=== PATIENT | male | born 1985 | race Caucasian/White ===

== ENCOUNTER 2020-08-08 23:52 | Emergency (ER) | payer OTHER ==
[~2020-08-08] VITALS: Ht 180.3 cm; Wt 92.5 kg
[2020-08-08 23:57] VITALS: BP 135/91
[2020-08-09] MEDS ORDERED: SODIUM CHLORIDE FLUSH 10ML SYR IVF ONE (00:30)
[2020-08-09] MEDS ORDERED: PROPOFOL 10 MG/ML, 20ML IVPush ONE (00:30)
[2020-08-09] MEDS ORDERED: SODIUM CHLORIDE 0.9% 1,000ML IVBOLUS ONE (00:30)
[2020-08-09] MEDS ORDERED: ONDANSETRON 2MG/ML, 2ML IVPush ONE (00:30)
[2020-08-09] MEDS ORDERED: PROPOFOL 100 ML IV ONE (00:54)
--- NOTE | 2020-08-09 01:15 | NUR ---
PT TRANSFERRED TO ROOM T2 FOR CONSCIOUSS SEDATION TO REMOVE FOREIGN BODY FROM THROAT. PT ON FULL CR MONITOR, AND ON O2 NC AND ETCO2 SAMPLER, AND BVM AT BEDSIDE, SUCTION AVAILABLE, AND CODE CART AVAILABLE AND STANDBY AT BEDSIDE. GI RN TO BEDSIDE WITH ENDOSCOPE MACHINE AND CART AND SET IT UP. GI MD TO BEDSIDE AND IS HERE TO COMPLETE PROCEDURE. MEDS PREPARED, AND READY. MD MADE AWARE.
--- NOTE | 2020-08-09 02:16 | NUR ---
SEE CONSCIOUS SEDATION NOTES FOR SEDATION PROCEDURE. PT TOLERATED WELL, AND WAS RECOVERED AND F/U AND D/C INSTRUCTIONS GIVEN TO PT WITH PRESCRIPTIONS AND HE V/U. PT AMBULATORY, CAOX3, A&OX4 AND AIRWAY INTACT, AND GOOD AERATION AND OXYGENATION.
== END 2020-08-09 02:19 | disposition home or self-care (01) ==
LOC: ED 08-09 00:22
DX: T18.128A Food in esophagus causing other injury, initial encounter (principal); E11.9 Type 2 diabetes mellitus without complications; F17.200 Nicotine dependence, unspecified, uncomplicated; X58.XXXA Exposure to other specified factors, initial encounter; Y93.9 Activity, unspecified; Y92.89 Other specified places as the place of occurrence of the external cause; Y99.8 Other external cause status
CPT/HCPCS: 99152; 99285